=== PATIENT | female | born 1980 | race Caucasian/White ===

== ENCOUNTER 2016-10-29 22:02 | Emergency (ER) | payer SELFPAY ==
--- NOTE | 2016-10-29 22:16 | ED CLINICAL REPORT ---
Clinical Report - Physicians/Mid Levels [facility] [address] [place] [address] 10/29/2016 22:03 Patient: GARCIA RHODES Time Seen: 22:08 Oct 29 2016. Arrived- By private vehicle. Historian- patient. HISTORY OF PRESENT ILLNESS Chief Complaint: SORE THROAT. This started yesterday and is still present. Pain described as moderate. The patient has had a sore throat. (Sore throat over the last 24 hours, with subjective fevers, has been taking Motrin at home. No emesis. No headache. No otalgia. No sick contacts.). REVIEW OF SYSTEMS The patient has had fever. No cough, difficulty breathing, nausea, abdominal pain or joint pain. All systems otherwise negative, except as recorded above. SOCIAL HISTORY Smoker- current status unknown. History of drug use: marijuana. No alcohol use. ADDITIONAL NOTES The nursing notes have been reviewed. PHYSICAL EXAM Vital Signs: 10/29/2016 22:09 BP: 142/78. HR: 87. RR: 20. O2 saturation: 100%. Temp: 97.9 F. Pain level now: 6/10. Appearance: Alert. No acute distress. ENT: Ears normal. Nose normal. Pharyngeal erythema. Tonsillar exudate present. Gums normal. No trismus present. No peritonsillar mass, drooling or dental decay or tenderness. Neck: Lymphadenopathy present. Trachea midline. CVS: Normal heart rate and rhythm. Heart sounds normal. Rhythm normal. No extra heart sounds. Respiratory: No respiratory distress. Breath sounds normal. Abdomen: Soft. Skin: Normal skin color. No rash. PROGRESS AND PROCEDURES Course of Care: Pt in the er with 4/4 centor criteria. Pt given dexamethasone. uvula midline. No recent h/o mono. Pt with subj fevers. No cough. H/O similar with reoccurance. Patient is stable. Physical exam findings are improved. Symptoms better. Patient/family counseled. Differential Diagnosis: I considered viral pharyngitis, bacterial pharyngitis, palatine tonsillitis, thrush, aphthous stomatitis, allergic stomatitis, erythema multiforme, mononucleosis, peritonsillar cellulitis, parapharyngeal abscess, sinusitis and foreign body as a possible cause of sore throat in this patient. This is a partial list of diagnoses considered. Disposition: Discharged. CLINICAL IMPRESSION Acute pharyngitis INSTRUCTIONS No strenuous activity. Do not work for three days. Rest. Drink plenty of fluids. Prescription Medications: Amoxicillin 500 mg capsules: take 1 orally for 10 days. No refills. OTC Medications: Motrin IB 200 mg (available over the counter): take 4 orally every 8 hours for 5 days, as needed for pain or swelling Follow-up: Follow up with your doctor in three days. (Electronically signed by Samanta Hogan P.A.-C 10/29/2016 22:40)
--- NOTE | 2016-10-29 22:16 | ED NURSING NOTES ---
Clinical Report - Nurses [facility] [address] [place] [address] 10/29/2016 22:03 Patient: GARCIA RHODES TRIAGE Triage time 22:10 Oct 29 2016. Acuity: LEVEL 3. Chief Complaint: SORE THROAT and FEVER. SEPSIS SCREEN: Sepsis Screen: negative. Negative (no infection suspected/documented). --22:14 Ariadne Bishop 22:09 10/29/16. BP: 142/78. HR: 87. RR: 20. O2 saturation: 100% on room air. Temp: 97.9 F (oral). Pain level now: 03/06. --22:14 Ariadne Bishop. Weight: 99.7 kg stated. Height/Length: 68 inches Per Patient. BMI: 33.4. --22:14 Ariadne Bishop. Medications None. --22:11 Ariadne Bishop. Medication/allergy information source: the patient. --22:14 Ariadne Bishop. Allergies Codeine. --22:11 Ariadne Bishop morphine. --22:11 Ariadne Bishop. History Arrived by private vehicle. Historian: patient. Accompanied by family. ( Patient reports sore throat that started last night. She states she noticed "puss pockets" in her throat last night. She reports headache and chills/fever. She reports history of strep that turned into throat abscess in which she was hospitalized.). 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 PAST MEDICAL HX: Abscess. Immunizations: up-to-date. Uses an intrauterine device. SOCIAL HX: Heavy tobacco smoker (cigarette)- 1 pack per day. History of drug use: marijuana. No alcohol use. No infectious disease exposure. ABUSE ASSESSMENT: No report of abuse. FALL RISK ASSESSMENT: Fall risk assessment completed. No fall risk identified. NUTRITIONAL RISK ASSESSMENT: The nutritional risk assessment revealed no deficiencies. FUNCTIONAL ASSESSMENT: Functional assessment: no impairments noted. LEARNING NEEDS ASSESSMENT: The learning needs assessment revealed no barriers. SKIN INTEGRITY ASSESSMENT: Skin integrity risk assessment completed. No skin integrity risk identified. --22:14 Ariadne Bishop. PROBLEMS: Hemorrhoids. Anal Fissure. Immunizations. LNMP - Last Normal Menstrual Period. Thrombophlebitis. Ectopic . --22:12 Ariadne Bishop. ADDITIONAL SURGERIES: Fallopian tube removal. Salpingectomy. --22:12 Ariadne Bishop. Interventions ID band on patient. To treatment room. --22:14 Ariadne Bishop. PHYSICAL ASSESSMENT GENERAL / NEURO / PSYCH: Alert. Oriented X 4. Appears in pain. HEENT: Mucous membranes are pink. RESPIRATORY: Respirations not labored. SKIN: Skin is warm and dry. --22:14 Ariadne Bishop. NURSING PROGRESS NOTES Reassurance given to the patient. Two patient identifiers checked. Call light placed in reach. Side rails up x 1. Patient placed in chair. Brakes of chair on. Patient ready for evaluation- chart flagged and ED physician notified. --22:15 Ariadne Bishop 22:10/29/2016 Dexamethasone (Dexamethasone) PO Tablets 8 mg given. Allergies verified and confirmed 5 rights. --22:26 Ariadne Bishop 22:10/29/2016 Amoxicillin PO Capsules 500 mg given. Allergies verified and confirmed 5 rights. --: Ariadne Bishop. DISPOSITION / DISCHARGE :10/29/16. Condition at departure: stable. The goals identified in the patient's plan of care were met. No learning barriers present. Discharge instructions provided and reviewed with the patient. Reviewed medication(s) side effects, precautions, dosing and course information. Prescription(s) given to the patient. Reviewed need for increased fluid intake. Patient verbalized understanding. Written instructions provided in Chinese. ( Gargle warm salt water. Follow up with PCP in three days.). The patient was discharged by the physician. She was discharged home and accompanied by spouse. She left the Emergency Department ambulatory and via private vehicle. Spouse driving. FALL RISK ASSESSMENT: Fall risk assessment completed. No fall risk identified. --: Araidne Bishop :10/29/16. BP: deferred. HR: deferred. RR: deferred. O2 saturation: deferred. Temp: deferred. Pain level now deferred. --:28 Ariadne Bishop. Locked/Released at 10/30/2016 5:43 by Ariadne Bishop,
--- NOTE | 2016-10-29 22:16 | ED CLINICAL REPORT ---
Clinical Report - Physicians/Mid Levels [facility] [address] [place] [address] 10/29/2016 22:03 Patient: GARCIA RHODES Time Seen: 22:08 Oct 29 2016. Arrived- By private vehicle. Historian- patient. HISTORY OF PRESENT ILLNESS Chief Complaint: SORE THROAT. This started yesterday and is still present. Pain described as moderate. The patient has had a sore throat. (Sore throat over the last 24 hours, with subjective fevers, has been taking Motrin at home. No emesis. No headache. No otalgia. No sick contacts.). REVIEW OF SYSTEMS The patient has had fever. No cough, difficulty breathing, nausea, abdominal pain or joint pain. All systems otherwise negative, except as recorded above. SOCIAL HISTORY Smoker- current status unknown. History of drug use: marijuana. No alcohol use. ADDITIONAL NOTES The nursing notes have been reviewed. PHYSICAL EXAM Vital Signs: 10/29/2016 22:09 BP: 142/78. HR: 87. RR: 20. O2 saturation: 100%. Temp: 97.9 F. Pain level now: 6/10. Appearance: Alert. No acute distress. ENT: Ears normal. Nose normal. Pharyngeal erythema. Tonsillar exudate present. Gums normal. No trismus present. No peritonsillar mass, drooling or dental decay or tenderness. Neck: Lymphadenopathy present. Trachea midline. CVS: Normal heart rate and rhythm. Heart sounds normal. Rhythm normal. No extra heart sounds. Respiratory: No respiratory distress. Breath sounds normal. Abdomen: Soft. Skin: Normal skin color. No rash. PROGRESS AND PROCEDURES Course of Care: Pt in the er with 4/4 centor criteria. Pt given dexamethasone. uvula midline. No recent h/o mono. Pt with subj fevers. No cough. H/O similar with reoccurance. Patient is stable. Physical exam findings are improved. Symptoms better. Patient/family counseled. Differential Diagnosis: I considered viral pharyngitis, bacterial pharyngitis, palatine tonsillitis, thrush, aphthous stomatitis, allergic stomatitis, erythema multiforme, mononucleosis, peritonsillar cellulitis, parapharyngeal abscess, sinusitis and foreign body as a possible cause of sore throat in this patient. This is a partial list of diagnoses considered. Disposition: Discharged. CLINICAL IMPRESSION Acute pharyngitis INSTRUCTIONS No strenuous activity. Do not work for three days. Rest. Drink plenty of fluids. Prescription Medications: Amoxicillin 500 mg capsules: take 1 orally for 10 days. No refills. OTC Medications: Motrin IB 200 mg (available over the counter): take 4 orally every 8 hours for 5 days, as needed for pain or swelling Follow-up: Follow up with your doctor in three days. (Electronically signed by Samanta Hogan P.A.-C 10/29/2016 22:40)
--- NOTE | 2016-10-29 22:16 | ED NURSING NOTES ---
Clinical Report - Nurses [facility] [address] [place] [address] 10/29/2016 22:03 Patient: GARCIA RHODES TRIAGE Triage time 22:10 Oct 29 2016. Acuity: LEVEL 3. Chief Complaint: SORE THROAT and FEVER. SEPSIS SCREEN: Sepsis Screen: negative. Negative (no infection suspected/documented). --22:14 Ariadne Bishop 22:09 10/29/16. BP: 142/78. HR: 87. RR: 20. O2 saturation: 100% on room air. Temp: 97.9 F (oral). Pain level now: 03/06. --22:14 Ariadne Bishop. Weight: 99.7 kg stated. Height/Length: 68 inches Per Patient. BMI: 33.4. --22:14 Ariadne Bishop. Medications None. --22:11 Ariadne Bishop. Medication/allergy information source: the patient. --22:14 Ariadne Bishop. Allergies Codeine. --22:11 Ariadne Bishop morphine. --22:11 Ariadne Bishop. History Arrived by private vehicle. Historian: patient. Accompanied by family. ( Patient reports sore throat that started last night. She states she noticed "puss pockets" in her throat last night. She reports headache and chills/fever. She reports history of strep that turned into throat abscess in which she was hospitalized.). 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 PAST MEDICAL HX: Abscess. Immunizations: up-to-date. Uses an intrauterine device. SOCIAL HX: Heavy tobacco smoker (cigarette)- 1 pack per day. History of drug use: marijuana. No alcohol use. No infectious disease exposure. ABUSE ASSESSMENT: No report of abuse. FALL RISK ASSESSMENT: Fall risk assessment completed. No fall risk identified. NUTRITIONAL RISK ASSESSMENT: The nutritional risk assessment revealed no deficiencies. FUNCTIONAL ASSESSMENT: Functional assessment: no impairments noted. LEARNING NEEDS ASSESSMENT: The learning needs assessment revealed no barriers. SKIN INTEGRITY ASSESSMENT: Skin integrity risk assessment completed. No skin integrity risk identified. --22:14 Ariande Bishop. PROBLEMS: Hemorrhoids. Anal Fissure. Immunizations. LNMP - Last Normal Menstrual Period. Thrombophlebitis. Ectopic . --22:12 Ariadne Bishop. ADDITIONAL SURGERIES: Fallopian tube removal. Salpingectomy. --22:12 Ariadne Bishop. Interventions ID band on patient. To treatment room. --22:14 Ariadne Bishop. PHYSICAL ASSESSMENT GENERAL / NEURO / PSYCH: Alert. Oriented X 4. Appears in pain. HEENT: Mucous membranes are pink. RESPIRATORY: Respirations not labored. SKIN: Skin is warm and dry. --22:14 Ariadne Bishop. NURSING PROGRESS NOTES Reassurance given to the patient. Two patient identifiers checked. Call light placed in reach. Side rails up x 1. Patient placed in chair. Brakes of chair on. Patient ready for evaluation- chart flagged and ED physician notified. --22:15 Ariadne Bishop 22:10/29/2016 Dexamethasone (Dexamethasone) PO Tablets 8 mg given. Allergies verified and confirmed 5 rights. --22:26 Ariadne Bishop 22:10/29/2016 Amoxicillin PO Capsules 500 mg given. Allergies verified and confirmed 5 rights. --: Ariadne Bishop. DISPOSITION / DISCHARGE :10/29/16. Condition at departure: stable. The goals identified in the patient's plan of care were met. No learning barriers present. Discharge instructions provided and reviewed with the patient. Reviewed medication(s) side effects, precautions, dosing and course information. Prescription(s) given to the patient. Reviewed need for increased fluid intake. Patient verbalized understanding. Written instructions provided in Kinyarwanda. ( Gargle warm salt water. Follow up with PCP in three days.). The patient was discharged by the physician. She was discharged home and accompanied by spouse. She left the Emergency Department ambulatory and via private vehicle. Spouse driving. FALL RISK ASSESSMENT: Fall risk assessment completed. No fall risk identified. --: Ariadne Bishop :10/29/16. BP: deferred. HR: deferred. RR: deferred. O2 saturation: deferred. Temp: deferred. Pain level now deferred. --:28 Ariadne Bishop. Locked/Released at 10/30/2016 5:43 by Ariadne Bishop,
--- NOTE | 2016-10-29 22:17 | ED ORDER SUMMARY ---
..... Patient: GARCIA RHODES OrderSheet [facility] VisitID: [id number] [address] [place] [address] 36y, F Registration Date/Time: 10/29/2016 ORDER SHEET Weight: 99.7 kg (stated) Allergies: Codeine, morphine GENERAL ORDERS: MEDICATION ORDERS: Dexamethasone PO 8mg (NOW) (22:14 10/29/2016 EKoroleva P.A.-C) (Ack 22:16 HSoule) (22:26 HSoule) Amoxicillin PO 500 mg (NOW) (22:15 10/29/2016 EKoroleva P.A.-C) (Ack 22:16 HSoule) (22:26 HSoule) IV FLUIDS: ORDER SHEET NOTES: [Electronically signed by Samanta Hogan P.AJusta-C (22:40 10/29/2016)] [Electronically signed by Ariadne Bishop (05:43 10/30/2016)] [Electronically locked/signed by Ariadne Bishop (05:43 10/30/2016)]
--- NOTE | 2016-10-29 22:17 | ED ORDER SUMMARY ---
..... Patient: GARCIA RHODES OrderSheet [facility] VisitID: [id number] [address] [place] [address] 36y, F Registration Date/Time: 10/29/2016 ORDER SHEET Weight: 99.7 kg (stated) Allergies: Codeine, morphine GENERAL ORDERS: MEDICATION ORDERS: Dexamethasone PO 8mg (NOW) (22:14 10/29/2016 EKoroleva P.A.-C) (Ack 22:16 HSoule) (22:26 HSoule) Amoxicillin PO 500 mg (NOW) (22:15 10/29/2016 EKoroleva P.A.-C) (Ack 22:16 HSoule) (22:26 HSoule) IV FLUIDS: ORDER SHEET NOTES: [Electronically signed by Samanta Hogan P.AJusta-C (22:40 10/29/2016)] [Electronically signed by Ariadne Bishop (05:43 10/30/2016)] [Electronically locked/signed by Ariadne Bishop (05:43 10/30/2016)]
--- NOTE | 2016-10-30 05:43 | ED MAR SUMMARY ---
..... Medication Administration Record [facility] [address] [place] [address] Patient: GARCIA RHODES Visit ID: [id number] 36y, F Weight: 99.7 kg Height/Length: 68 in BMI: 33.4 ALLERGIES: morphine, Codeine Given 22:21 10/29/2016 Ariadne Bishop, Medication Administered: DEXAMETHASONE [PO] (DEXAMETHASONE), Dose: 8 mg Tablets PO. Medication Ordered: Dexamethasone PO 8mg (NOW). Given 22:26 10/29/2016 Ariadne Bishop, Medication Administered: AMOXICILLIN [PO], Dose: 500 mg Capsules PO. Medication Ordered: Amoxicillin PO 500 mg (NOW).
--- NOTE | 2016-10-30 05:43 | ED MAR SUMMARY ---
..... Medication Administration Record [facility] [address] [place] [address] Patient: GARCIA RHODES Visit ID: [id number] 36y, F Weight: 99.7 kg Height/Length: 68 in BMI: 33.4 ALLERGIES: morphine, Codeine Given 22:21 10/29/2016 Ariadne Bishop, Medication Administered: DEXAMETHASONE [PO] (DEXAMETHASONE), Dose: 8 mg Tablets PO. Medication Ordered: Dexamethasone PO 8mg (NOW). Given 22:26 10/29/2016 Ariadne Bishop, Medication Administered: AMOXICILLIN [PO], Dose: 500 mg Capsules PO. Medication Ordered: Amoxicillin PO 500 mg (NOW).
--- NOTE | 2016-10-30 05:43 | ED MED RECONCILIATION SUMMARY ---
Patient: GARCIA RHODES Medication Reconciliation Report [facility] VisitID: [id number] [address] [place] [address] 36y, F Registration Date/Time: 10/29/2016 Weight: 99.7 kg Height/Length: 68 in. BMI: 33.4 ALLERGIES: Codeine, morphine The patient's Home Medications are listed below: NONE. The source(s) of the original Home Medication information: patient The following Medications were given to the patient in the Emergency Department: Dexamethasone [PO] PO 8 mg, administered: 10/29/2016 10:21:00 PM Amoxicillin [PO] PO 500 mg, administered: 10/29/2016 10:26:00 PM The following Medications were prescribed to the patient: Motrin IB 200 mg (available over the counter): take 4 orally every 8 hours for 5 days, as needed for pain or swelling -- Samanta Hogan, P.A.-C Amoxicillin 500 mg capsules: take 1 orally for 10 days. No refills. -- Samanta Hogan, P.A.-C
--- NOTE | 2016-10-30 05:43 | ED MED RECONCILIATION SUMMARY ---
Patient: GARCIA RHODES Medication Reconciliation Report [facility] VisitID: [id number] [address] [place] [address] 36y, F Registration Date/Time: 10/29/2016 Weight: 99.7 kg Height/Length: 68 in. BMI: 33.4 ALLERGIES: Codeine, morphine The patient's Home Medications are listed below: NONE. The source(s) of the original Home Medication information: patient The following Medications were given to the patient in the Emergency Department: Dexamethasone [PO] PO 8 mg, administered: 10/29/2016 10:21:00 PM Amoxicillin [PO] PO 500 mg, administered: 10/29/2016 10:26:00 PM The following Medications were prescribed to the patient: Motrin IB 200 mg (available over the counter): take 4 orally every 8 hours for 5 days, as needed for pain or swelling -- Samanta Hogan, P.A.-C Amoxicillin 500 mg capsules: take 1 orally for 10 days. No refills. -- Samanta Hogan, P.A.-C
--- NOTE | 2016-10-30 05:43 | ED DISCHARGE INSTRUCTIONS ---
Patient: GARCIA RHODES General Instructions VisitID: [id number] [place] [address] 36y, F Registration Date/Time: 10/29/2016 Acute pharyngitis INSTRUCTIONS No strenuous activity. Do not work for three days. Rest. Drink plenty of fluids. Prescription Medications: Amoxicillin 500 mg capsules: take 1 orally for 10 days. No refills. OTC Medications: Motrin IB 200 mg (available over the counter): take 4 orally every 8 hours for 5 days, as needed for pain or swelling Follow-up: Follow up with your doctor in three days. ADDITIONAL INFORMATION Pharyngitis: Strep [Presumed] Your illness has the signs of a strep throat infection. Strep throat is a contagious illness. It is spread by coughing, kissing or by touching others after touching your mouth or nose. Symptoms include throat pain worse with swallowing, aching all over, headache and fever. You will be treated with an antibiotic, which should make you start to feel better within 1-2 days. Home Care: Rest at home and drink plenty of fluids to avoid dehydration. No school or work for the first two days on antibiotics. You will not be contagious after this time, and if you are feeling better, you can return to school or work. Take your antibiotics for a full 10 days, even if you feel better after the first few days of treatment. This is very important to prevent complications from the strep infection (such as heart or kidney disease). Children: Use acetaminophen (Tylenol) for fever, fussiness or discomfort. In infants over six months of age, you may use ibuprofen (Children's Motrin) instead of Tylenol. [NOTE: If your child has chronic liver or kidney disease or ever had a stomach ulcer or GI bleeding, talk with your doctor before using these medicines.] (Aspirin should never be used in anyone under 18 years of age who is ill with a fever. It may cause severe liver damage.) Adults: You may use acetaminophen (Tylenol) or ibuprofen (Motrin, Advil) to control pain or fever, unless another medicine was prescribed for this. [NOTE: If you have chronic liver or kidney disease or ever had a stomach ulcer or GI bleeding, talk with your doctor before using these medicines.] Throat lozenges or sprays (Chloraseptic and others) will reduce pain. Gargling with warm salt water will also reduce throat pain. Dissolve 1/2 teaspoon of salt in 1 glass of warm water. This is especially useful just before meals. Follow Up with your doctor or as directed by our staff if you are not improving over the next week. Get Prompt Medical Attention if any of the following occur: Fever over 100.5F (38.0C) oral, or over 101.5F (38.6C) rectal for more than three days New or worsening ear pain, sinus pain or headache Painful lumps in the back of your neck Unable to swallow liquids or open your mouth wide due to throat pain Trouble breathing or noisy breathing Muffled voice New rash Amoxicillin Trihydrate Oral tablet What is this medicine? AMOXICILLIN (a mox i SHERRY in) is a penicillin antibiotic. It is used to treat certain kinds of bacterial infections. It will not work for colds, flu, or other viral infections. How should I use this medicine? Take this medicine by mouth with a glass of water. Follow the directions on your prescription label. You may take this medicine with food or on an empty stomach. Take your medicine at regular intervals. Do not take your medicine more often than directed. Take all of your medicine as directed even if you think your are better. Do not skip doses or stop your medicine early. Talk to your artist manager regarding the use of this medicine in children. While this drug may be prescribed for selected conditions, precautions do apply. What side effects may I notice from receiving this medicine? Side effects that you should report to your doctor or health home visit field care manager as soon as possible: allergic reactions like skin rash, itching or hives, swelling of the face, lips, or tongue breathing problems dark urine redness, blistering, peeling or loosening of the skin, including inside the mouth seizures severe or watery diarrhea trouble passing urine or change in the amount of urine unusual bleeding or bruising unusually weak or tired yellowing of the eyes or skin Side effects that usually do not require medical attention (report to your doctor or health home visit field care manager if they continue or are bothersome): dizziness headache stomach upset trouble sleeping What may interact with this medicine? amiloride control pills chloramphenicol macrolides probenecid sulfonamides tetracyclines What if I miss a dose? If you miss a dose, take it as soon as you can. If it is almost time for your next dose, take only that dose. Do not take double or extra doses. Where should I keep my medicine? Keep out of the reach of children. Store between 68 and 77 degrees F (20 and 25 degrees C). Keep bottle closed tightly. Throw away any unused medicine after the expiration date. What should I tell my health care provider before I take this medicine? They need to know if you have any of these conditions: asthma kidney disease an unusual or allergic reaction to amoxicillin, other penicillins, cephalosporin antibiotics, other medicines, foods, dyes, or preservatives or trying to get breast-feeding What should I watch for while using this medicine? Tell your doctor or health home visit field care manager if your symptoms do not improve in 2 or 3 days. Take all of the doses of your medicine as directed. Do not skip doses or stop your medicine early. If you are diabetic, you may get a false positive result for sugar in your urine with certain brands of urine tests. Check with your doctor. Do not treat diarrhea with [id number] products. Contact your doctor if you have diarrhea that lasts more than 2 days or if the diarrhea is severe and watery. Ibuprofen Oral tablet What is this medicine? IBUPROFEN (eye BYOO proe fen) is a non-steroidal anti-inflammatory drug (NSAID). It is used for dental pain, fever, headaches or migraines, osteoarthritis, rheumatoid arthritis, or painful monthly periods. It can also relieve minor aches and pains caused by a cold, flu, or sore throat. How should I use this medicine? Take this medicine by mouth with a glass of water. Follow the directions on the prescription label. Take this medicine with food if your stomach gets upset. Try to not lie down for at least 10 minutes after you take the medicine. Take your medicine at regular intervals. Do not take your medicine more often than directed. A special MedGuide will be given to you by the pharmacist with each prescription and refill. Be sure to read this information carefully each time. Talk to your artist manager regarding the use of this medicine in children. Special care may be needed. What side effects may I notice from receiving this medicine? Side effects that you should report to your doctor or health home visit field care manager as soon as possible: allergic reactions like skin rash, itching or hives, swelling of the face, lips, or tongue black or bloody stools, blood in the urine or in vomit breathing problems changes in vision chest pain general ill feeling or flu-like symptoms nausea or vomiting redness, blistering, peeling or loosening of the skin, including inside the mouth slurred speech or weakness on one side of the body stomach pain unexplained weight gain or swelling unusually weak or tired yellowing of eyes or skin Side effects that usually do not require medical attention (report to your doctor or health home visit field care manager if they continue or are bothersome): constipation or diarrhea dizziness gas or heartburn stomach upset What may interact with this medicine? Do not take this medicine with any of the following medications: cidofovir ketorolac methotrexate pemetrexed This medicine may also interact with the following medications: alcohol aspirin diuretics lithium other drugs for inflammation like prednisone warfarin What if I miss a dose? If you miss a dose, take it as soon as you can. If it is almost time for your next dose, take only that dose. Do not take double or extra doses. Where should I keep my medicine? Keep out of the reach of children. Store at room temperature between 15 and 30 degrees C (59 and 86 degrees F). Keep container tightly closed. Throw away any unused medicine after the expiration date. What should I tell my health care provider before I take this medicine? They need to know if you have any of these conditions: asthma cigarette smoker drink more than 3 alcohol containing drinks a day heart disease or circulation problems such as heart failure or leg edema (fluid retention) high blood pressure kidney disease liver disease stomach bleeding or ulcers an unusual or allergic reaction to ibuprofen, aspirin, other NSAIDS, other medicines, foods, dyes, or preservatives or trying to get breast-feeding What should I watch for while using this medicine? Tell your doctor or healthcare professional if your symptoms do not start to get better or if they get worse. This medicine does not prevent heart attack or stroke. In fact, this medicine may increase the chance of a heart attack or stroke. The chance may increase with longer use of this medicine and in people who have heart disease. If you take aspirin to prevent heart attack or stroke, talk with your doctor or health home visit field care manager. Do not take other medicines that contain aspirin, ibuprofen, or naproxen with this medicine. Side effects such as stomach upset, nausea, or ulcers may be more likely to occur. Many medicines available without a prescription should not be taken with this medicine. This medicine can cause ulcers and bleeding in the stomach and intestines at any time during treatment. Ulcers and bleeding can happen without warning symptoms and can cause . To reduce your risk, do not smoke cigarettes or drink alcohol while you are taking this medicine. You may get drowsy or dizzy. Do not drive, use machinery, or do anything that needs mental alertness until you know how this medicine affects you. Do not stand or sit up quickly, especially if you are an older patient. This reduces the risk of dizzy or fainting spells. This medicine can cause you to bleed more easily. Try to avoid damage to your teeth and gums when you brush or floss your teeth. You have been given the following additional information: Pharyngitis, Strep (Presumed) Amoxicillin Trihydrate Oral tablet Ibuprofen Oral tablet No strenuous activity. Do not work for three days. Rest. (Electronically signed by Samanta Hogan P.A.-C 10/29/2016 22:40)
--- NOTE | 2016-10-30 05:43 | ED DISCHARGE INSTRUCTIONS ---
Patient: GARCIA RHODES General Instructions [facility] VisitID: [id number] [place] [address] 36y, F Registration Date/Time: 10/29/2016 Acute pharyngitis INSTRUCTIONS No strenuous activity. Do not work for three days. Rest. Drink plenty of fluids. Prescription Medications: Amoxicillin 500 mg capsules: take 1 orally for 10 days. No refills. OTC Medications: Motrin IB 200 mg (available over the counter): take 4 orally every 8 hours for 5 days, as needed for pain or swelling Follow-up: Follow up with your doctor in three days. ADDITIONAL INFORMATION Pharyngitis: Strep [Presumed] Your illness has the signs of a strep throat infection. Strep throat is a contagious illness. It is spread by coughing, kissing or by touching others after touching your mouth or nose. Symptoms include throat pain worse with swallowing, aching all over, headache and fever. You will be treated with an antibiotic, which should make you start to feel better within 1-2 days. Home Care: Rest at home and drink plenty of fluids to avoid dehydration. No school or work for the first two days on antibiotics. You will not be contagious after this time, and if you are feeling better, you can return to school or work. Take your antibiotics for a full 10 days, even if you feel better after the first few days of treatment. This is very important to prevent complications from the strep infection (such as heart or kidney disease). Children: Use acetaminophen (Tylenol) for fever, fussiness or discomfort. In infants over six months of age, you may use ibuprofen (Children's Motrin) instead of Tylenol. [NOTE: If your child has chronic liver or kidney disease or ever had a stomach ulcer or GI bleeding, talk with your doctor before using these medicines.] (Aspirin should never be used in anyone under 18 years of age who is ill with a fever. It may cause severe liver damage.) Adults: You may use acetaminophen (Tylenol) or ibuprofen (Motrin, Advil) to control pain or fever, unless another medicine was prescribed for this. [NOTE: If you have chronic liver or kidney disease or ever had a stomach ulcer or GI bleeding, talk with your doctor before using these medicines.] Throat lozenges or sprays (Chloraseptic and others) will reduce pain. Gargling with warm salt water will also reduce throat pain. Dissolve 1/2 teaspoon of salt in 1 glass of warm water. This is especially useful just before meals. Follow Up with your doctor or as directed by our staff if you are not improving over the next week. Get Prompt Medical Attention if any of the following occur: Fever over 100.5F (38.0C) oral, or over 101.5F (38.6C) rectal for more than three days New or worsening ear pain, sinus pain or headache Painful lumps in the back of your neck Unable to swallow liquids or open your mouth wide due to throat pain Trouble breathing or noisy breathing Muffled voice New rash Amoxicillin Trihydrate Oral tablet What is this medicine? AMOXICILLIN (a mox i SHERRY in) is a penicillin antibiotic. It is used to treat certain kinds of bacterial infections. It will not work for colds, flu, or other viral infections. How should I use this medicine? Take this medicine by mouth with a glass of water. Follow the directions on your prescription label. You may take this medicine with food or on an empty stomach. Take your medicine at regular intervals. Do not take your medicine more often than directed. Take all of your medicine as directed even if you think your are better. Do not skip doses or stop your medicine early. Talk to your health and fitness professor regarding the use of this medicine in children. While this drug may be prescribed for selected conditions, precautions do apply. What side effects may I notice from receiving this medicine? Side effects that you should report to your doctor or health administrator health care facility as soon as possible: allergic reactions like skin rash, itching or hives, swelling of the face, lips, or tongue breathing problems dark urine redness, blistering, peeling or loosening of the skin, including inside the mouth seizures severe or watery diarrhea trouble passing urine or change in the amount of urine unusual bleeding or bruising unusually weak or tired yellowing of the eyes or skin Side effects that usually do not require medical attention (report to your doctor or health administrator health care facility if they continue or are bothersome): dizziness headache stomach upset trouble sleeping What may interact with this medicine? amiloride control pills chloramphenicol macrolides probenecid sulfonamides tetracyclines What if I miss a dose? If you miss a dose, take it as soon as you can. If it is almost time for your next dose, take only that dose. Do not take double or extra doses. Where should I keep my medicine? Keep out of the reach of children. Store between 68 and 77 degrees F (20 and 25 degrees C). Keep bottle closed tightly. Throw away any unused medicine after the expiration date. What should I tell my health care provider before I take this medicine? They need to know if you have any of these conditions: asthma kidney disease an unusual or allergic reaction to amoxicillin, other penicillins, cephalosporin antibiotics, other medicines, foods, dyes, or preservatives or trying to get breast-feeding What should I watch for while using this medicine? Tell your doctor or health administrator health care facility if your symptoms do not improve in 2 or 3 days. Take all of the doses of your medicine as directed. Do not skip doses or stop your medicine early. If you are diabetic, you may get a false positive result for sugar in your urine with certain brands of urine tests. Check with your doctor. Do not treat diarrhea with [id number] products. Contact your doctor if you have diarrhea that lasts more than 2 days or if the diarrhea is severe and watery. Ibuprofen Oral tablet What is this medicine? IBUPROFEN (eye BYOO proe fen) is a non-steroidal anti-inflammatory drug (NSAID). It is used for dental pain, fever, headaches or migraines, osteoarthritis, rheumatoid arthritis, or painful monthly periods. It can also relieve minor aches and pains caused by a cold, flu, or sore throat. How should I use this medicine? Take this medicine by mouth with a glass of water. Follow the directions on the prescription label. Take this medicine with food if your stomach gets upset. Try to not lie down for at least 10 minutes after you take the medicine. Take your medicine at regular intervals. Do not take your medicine more often than directed. A special MedGuide will be given to you by the pharmacist with each prescription and refill. Be sure to read this information carefully each time. Talk to your health and fitness professor regarding the use of this medicine in children. Special care may be needed. What side effects may I notice from receiving this medicine? Side effects that you should report to your doctor or health administrator health care facility as soon as possible: allergic reactions like skin rash, itching or hives, swelling of the face, lips, or tongue black or bloody stools, blood in the urine or in vomit breathing problems changes in vision chest pain general ill feeling or flu-like symptoms nausea or vomiting redness, blistering, peeling or loosening of the skin, including inside the mouth slurred speech or weakness on one side of the body stomach pain unexplained weight gain or swelling unusually weak or tired yellowing of eyes or skin Side effects that usually do not require medical attention (report to your doctor or health administrator health care facility if they continue or are bothersome): constipation or diarrhea dizziness gas or heartburn stomach upset What may interact with this medicine? Do not take this medicine with any of the following medications: cidofovir ketorolac methotrexate pemetrexed This medicine may also interact with the following medications: alcohol aspirin diuretics lithium other drugs for inflammation like prednisone warfarin What if I miss a dose? If you miss a dose, take it as soon as you can. If it is almost time for your next dose, take only that dose. Do not take double or extra doses. Where should I keep my medicine? Keep out of the reach of children. Store at room temperature between 15 and 30 degrees C (59 and 86 degrees F). Keep container tightly closed. Throw away any unused medicine after the expiration date. What should I tell my health care provider before I take this medicine? They need to know if you have any of these conditions: asthma cigarette smoker drink more than 3 alcohol containing drinks a day heart disease or circulation problems such as heart failure or leg edema (fluid retention) high blood pressure kidney disease liver disease stomach bleeding or ulcers an unusual or allergic reaction to ibuprofen, aspirin, other NSAIDS, other medicines, foods, dyes, or preservatives or trying to get breast-feeding What should I watch for while using this medicine? Tell your doctor or healthcare professional if your symptoms do not start to get better or if they get worse. This medicine does not prevent heart attack or stroke. In fact, this medicine may increase the chance of a heart attack or stroke. The chance may increase with longer use of this medicine and in people who have heart disease. If you take aspirin to prevent heart attack or stroke, talk with your doctor or health administrator health care facility. Do not take other medicines that contain aspirin, ibuprofen, or naproxen with this medicine. Side effects such as stomach upset, nausea, or ulcers may be more likely to occur. Many medicines available without a prescription should not be taken with this medicine. This medicine can cause ulcers and bleeding in the stomach and intestines at any time during treatment. Ulcers and bleeding can happen without warning symptoms and can cause . To reduce your risk, do not smoke cigarettes or drink alcohol while you are taking this medicine. You may get drowsy or dizzy. Do not drive, use machinery, or do anything that needs mental alertness until you know how this medicine affects you. Do not stand or sit up quickly, especially if you are an older patient. This reduces the risk of dizzy or fainting spells. This medicine can cause you to bleed more easily. Try to avoid damage to your teeth and gums when you brush or floss your teeth. You have been given the following additional information: Pharyngitis, Strep (Presumed) Amoxicillin Trihydrate Oral tablet Ibuprofen Oral tablet No strenuous activity. Do not work for three days. Rest. (Electronically signed by Samanta Hogan P.A.-C 10/29/2016 22:40)
== END 2016-10-29 22:25 | disposition home or self-care (01) ==
LOC: ED SRH 22:02
DX: J02.9 Acute pharyngitis, unspecified (principal); F17.200 Nicotine dependence, unspecified, uncomplicated; Z88.5 Allergy status to narcotic agent